=== PATIENT | male | born 1965 | race Hispanic/Latino ===

== ENCOUNTER 2016-11-12 17:13 | Emergency (ER) | payer SELFPAY ==
[2016-11-12 19:54] LABS: Hematocrit TNR % (35.5-45.6); Hemoglobin TNR gm/dl (11.8-15.2); Mean Corpuscular HGB Conc TNR % (32-34); Mean Corpuscular Hemoglobin TNR pg (28-32); Mean Corpuscular Volume TNR fl (84-94); Red Blood Count TNR M/mm3 (3.65-5.03); White Blood Count TNR K/mm3 (4.5-11.0)
[2016-11-12 19:55] LABS: Basophils % (Auto) TNR % (0.0-1.8); Diff Status TNR; Eosinophils % (Auto) TNR % (0.0-4.3); Mean Platelet Volume TNR fl (6-12); Platelet Count TNR K/mm3 (140-440); Red Cell Distribution Width TNR % (13.2-15.2)
[2016-11-12 20:09] LABS: Albumin/Globulin Ratio 1.1 %; Alkaline Phosphatase 141 units/L (35-129); BUN/Creatinine Ratio 15.71; Blood Urea Nitrogen 11 mg/dL (9-20); Calcium 9.1 mg/dL (8.4-10.2); Carbon Dioxide 25 mmol/L (22-30); Chloride 96.8 mmol/L (98-107); Glucose 297 mg/dL (75-100); Lipase 24 units/L (13-60); Sodium 135 mmol/L (137-145); Total Protein 7.8 g/dL (6.3-8.2)
[2016-11-12 20:39] LABS: Basophils % (Auto) 0.5 % (0.0-1.8); Eosinophils % (Auto) 1.7 % (0.0-4.3); Hematocrit 49.1 % (35.5-45.6); Hemoglobin 16.9 gm/dl (11.8-15.2); Mean Corpuscular HGB Conc 34 % (32-34); Mean Corpuscular Hemoglobin 29 pg (28-32); Mean Corpuscular Volume 83 fl (84-94); Platelet Count 250 K/mm3 (140-440); Red Blood Count 5.92 M/mm3 (3.65-5.03); Red Cell Distribution Width 13.7 % (13.2-15.2); White Blood Count 8.6 K/mm3 (4.5-11.0)
[2016-11-12 20:39] LABS: Alanine Aminotransferase 41 units/L (7-56); Anion Gap 18 mmol/L
[2016-11-12 22:02] VITALS: BP 125/88
--- NOTE | 2016-11-12 22:14 | Emergency Department Report ---
ED Abdominal Pain HPI - General Chief Complaint: Abdominal Pain Stated Complaint: URINARY INCONTINENCE Time Seen by Provider: 11/12/16 21:06 Source: patient Mode of arrival: Ambulatory Limitations: No Limitations - History of Present Illness MD Complaint: other (perineal redness) -: Gradual Location: diffuse Radiation: other (none) Migration to: no migration Severity: mild Severity scale (0 -10): 4 Quality: dull Consistency: intermittent Improves With: nothing Worsens With: nothing Context: other (polydipsia) Associated Symptoms: denies other symptoms - Related Data Previous Rx's Medication Instructions Recorded Last Taken Type Ciprofloxacin HCl [Ciprofloxacin 500 mg PO Q12HR #14 tab 11/12/16 Unknown Rx TAB] Nystatin Cream [Mycostatin Cream] 1 applic TP TID #1 tube 11/12/16 Unknown Rx metFORMIN [Glucophage] 500 mg PO BID #60 tablet 11/12/16 Unknown Rx Allergies Allergy/AdvReac Type Severity Reaction Status Date / Time No Known Allergies Allergy Unverified 11/12/16 19:10 ED Review of Systems ROS: Stated complaint: URINARY INCONTINENCE Other details as noted in HPI Comment: All other systems reviewed and negative Gastrointestinal: as per HPI Genitourinary: frequency Skin: rash ED Past Medical Hx - Past Medical History Previous Medical History?: No - Surgical History Past Surgical History?: Yes Hx Cholecystectomy: Yes - Social History Smoking Status: Current Every Day Smoker Substance Use Type: None - Medications Home Medications: Home Medications Medication Instructions Recorded Confirmed Last Taken Type Ciprofloxacin HCl [Ciprofloxacin 500 mg PO Q12HR #14 tab 11/12/16 Unknown Rx TAB] Nystatin Cream [Mycostatin Cream] 1 applic TP TID #1 tube 11/12/16 Unknown Rx metFORMIN [Glucophage] 500 mg PO BID #60 tablet 11/12/16 Unknown Rx ED Physical Exam - General Limitations: No Limitations General appearance: alert - Head Head exam: Present: atraumatic - Eye Eye exam: Present: normal appearance, PERRL, EOMI Pupils: Present: normal accommodation - ENT ENT exam: Present: normal exam - Neck Neck exam: Present: normal inspection - Respiratory Respiratory exam: Present: normal lung sounds bilaterally - Cardiovascular Cardiovascular Exam: Present: regular rate, normal rhythm - GI/Abdominal GI/Abdominal exam: Present: soft - Back Exam Back exam: Present: normal inspection - Neurological Exam Neurological exam: Present: alert, oriented X3 - Psychiatric Psychiatric exam: Present: normal affect - Skin Skin exam: Present: rash (erythema around the testicle AND PERINEAL AREA) ED Course Vital Signs 11/12/16 11/12/16 19:10 22:01 Temperature 98.3 F 98.4 F Pulse Rate 96 H 87 Respiratory 18 14 Rate Blood Pressure 150/97 Blood Pressure 150/97 125/88 [Right] O2 Sat by Pulse 100 100 Oximetry ED Medical Decision Making - Lab Data Result diagrams: 11/12/16 20:25 11/12/16 19:29 Critical care attestation.: If time is entered above; I have spent that time in minutes in the direct care of this critically ill patient, excluding procedure time. ED Disposition Clinical Impression: Diabetes mellitus, Incontinence, Yeast dermatitis Disposition: DC-01 TO HOME OR SELFCARE Is pt being admited?: No Does the pt Need Aspirin: No Condition: Stable Instructions: Diabetes Mellitus Type 2 in Adults (ED) Prescriptions: Ciprofloxacin HCl [Ciprofloxacin TAB] 500 mg PO Q12HR #14 tab metFORMIN [Glucophage] 500 mg PO BID #60 tablet Nystatin Cream [Mycostatin Cream] 1 applic TP TID #1 tube Referrals: PRIMARY CARE, [Primary Care Provider] - 3-5 Days
[2016-11-12 22:20] LABS: Bilirubin,Urine NEG (Negative); Blood,Urine SM (Negative); Ketones,Urine NEG (Negative); Leukocyte Esterase,Urine NEG (Negative); Mucus,Urine FEW /HPF; Nitrite,Urine NEG (Negative)
== END 2016-11-12 22:45 | disposition home or self-care (01) ==
LOC: ED 17:13
DX: L30.8 Other specified dermatitis (principal); E11.9 Type 2 diabetes mellitus without complications; F17.200 Nicotine dependence, unspecified, uncomplicated
CPT/HCPCS: 36415; 80053; 81001; 83690; 85025; 99283

== ENCOUNTER 2017-08-10 12:35 | Day surgery (SDC) | payer MEDICAID ==
[~2017-08-10 12:35] MED LIST: ANCEF/STERILE WATER 2 GM/20 ML 2 GM/20 ML SYRINGE IV NR; NACL 0.9% 1000 ML 1,000 ML IV SCH
[2017-08-10] MEDS ORDERED: SUBLIMAZE ONE (13:17)
[2017-08-10] MEDS ORDERED: XYLOCAINE MPF 2% ONE (13:17)
[2017-08-10] MEDS ORDERED: DIPRIVAN 10 MG/ML IV ONE (13:18)
[2017-08-10] MEDS ORDERED: HumuLIN R IV ONE (13:32)
--- NOTE | 2017-08-10 13:40 | Anesthesia Day of Surgery ---
Anesthesia Day of Surgery - Day of Surgery Patient Examined: Yes Patient H&P Reviewed: Yes Patient is NPO: Yes
[2017-08-10] MEDS ORDERED: ZOFRAN IV PRN (13:42)
--- NOTE | 2017-08-10 13:42 | Anesthesia Consultation ---
Anesthesia Consult and Med Hx Date of service: 08/10/17 - Airway Anesthetic Teeth Evaluation: Poor ROM Head & Neck: Adequate Mental/Hyoid Distance: Adequate Mallampati Class: Class III Intubation Access Assessment: Probably Good - Pulmonary Exam CTA: Yes - Cardiac Exam Cardiac Exam: RRR - Pre-Operative Health Status ASA Pre-Surgery Classification: ASA3 Proposed Anesthetic Plan: General (poor denition, missing several, loose teeth. GA with LMA ok. denies GERD) - Pulmonary Hx Smoking: Yes (1/2 PPD X 12 YRS) Hx Sleep Apnea: No (LIANET PRE SCREEN HIGH RISK) - Cardiovascular System Hx Hypertension: No - Other Systems Hx Cancer: No
[2017-08-10] MEDS ORDERED: VERSED IV NR (14:00)
[2017-08-10] MEDS ORDERED: GARAMYCIN ONE (14:19)
[2017-08-10] MEDS ORDERED: NACL 0.9% 100 ML ONE (14:21)
[2017-08-10] MEDS ORDERED: WATER FOR IRRIG STERILE IR ONE ×2 (14:44)
[2017-08-10] MEDS: DILAUDID IV PRN ×2 (14:55→15:16)
--- NOTE | 2017-08-10 14:57 | Post Operative Note ---
Date of procedure: 08/10/17 Pre-op diagnosis: stricture and inc psa Post-op diagnosis: other (poss infection) Findings: cysto dil rpgs Procedure: cysto rpgs dil Anesthesia: GETA Surgeon: CLARISA BELL Estimated blood loss: minimal Pathology: none Specimen disposition: to lab Condition: stable Disposition: PACU
[2017-08-10] MEDS ORDERED: ZOFRAN ONE (14:58)
--- NOTE | 2017-08-10 14:59 | Discharge Summary ---
Short Stay Discharge Plan Activity: other (no straining ) Weight Bearing Status: Full Weight Bearing Diet: low fat, low cholesterol, low salt Special Instructions: other (teach [place] care ) Durable Medical Equipment Needed Upon Discharge: other ([place] ) Follow up with: BENSON DESAI MD [Primary Care Provider] - 7 Days CLARISA BELL MD [Staff Physician] - 7 Days
--- NOTE | 2017-08-10 15:11 | Fluoroscopy Report ---
FLUOROSCOPY RETROGRADE UROGRAPHY: HISTORY: Urethral stricture. FINDINGS: Fluoroscopy was provided by radiology during retrograde urography by the urologist. 9 fluoroscopic images were captured. There is adequate filling of the ureters and intrarenal collecting systems with no filling defects or anatomic abnormalities identified. Please correlate with the procedural report if needed. IMPRESSION: Retrograde pyelograms within normal limits.
[2017-08-10] MEDS ORDERED: TORADOL ONE (15:30)
[2017-08-10] MEDS ORDERED: TORADOL IV ONE (15:33)
--- NOTE | 2017-08-10 15:38 | Post Anesthesia Evaluation ---
- Post Anesthesia Evaluation Patient Participated: Yes Airway Patent: Yes Stable Respiratory Function: Yes Nausea/Vomiting: No Temp > 96.8F: Yes Pain Manageable: Yes Adequeate Hydration: Yes Anesthesia Complications: No
[2017-08-10] MEDS ORDERED: TYLENOL PO PRN (16:00)
[2017-08-10 16:11] VITALS: BP 115/70
--- NOTE | 2017-08-10 23:58 | Consultation ---
PREOPERATIVE DIAGNOSIS: Distal urethral strictures, elevated PSA. POSTOPERATIVE DIAGNOSIS: Evidence of likely infection and severe stricture disease. PROCEDURE: Cystoscopy with urethral dilatation, insertion of [place] catheter, retrograde prostate biopsies were held because of possible infection. SURGEON: Ash Forte M.D. ANESTHESIA: General. FINDINGS: This gentleman has had seven surgeries on his distal urethra when he was a child. He has diminished flow, intermittent dysuria. He also has a family history of prostate cancer, elevated PSA, but he had infection. At this point, he now presents for treatment. DESCRIPTION OF PROCEDURE: The patient was brought to the operating room and placed on the operating table. Following induction of anesthesia, placed in lithotomy position, prepped and draped in usual sterile fashion. The meatus could not be negotiated initially because it was so narrow and the distal urethra was narrowed. We placed a wire in the bladder and using the coaxial dilators, dilated the urethra to 20-Persian. Cystoscopy was carried out and once we got the bladder, the urine was very concentrated and had an odor to it. Retrograde showed good filling, good drainage. Because of the fact we were unsure whether there was infection, he did get gentamicin and Ancef. We decided not to do prostate biopsies. The prostate felt firm and small. The patient tolerated the procedure well. A #20 [place] coiled in the bladder and was in good position. There was no significant complication. PLAN: Follow up prostate biopsies as needed with recheck of the PSA in about 6 weeks. JOB# [id number] KAYLEY/MIKEY
== END 2017-08-10 17:10 | disposition home or self-care (01) ==
LOC: OR 12:35
PROVIDERS: ATTEND Urology
DX: N99.110 Postprocedural urethral stricture, male, meatal (principal); R97.20 Elevated prostate specific antigen [PSA]; K21.9 Gastro-esophageal reflux disease without esophagitis; F17.210 Nicotine dependence, cigarettes, uncomplicated; Z79.899 Other long term (current) drug therapy
CPT/HCPCS: 52281; 74420; 82962; A4217; C1726; C1758; C1769; J0690; J1170; J1580; J1885; J2405; J2704; J3010; J7030; Q9967; J1815

== ENCOUNTER 2017-08-20 22:36 | Emergency (ER) | payer MEDICAID ==
[2017-08-20] MEDS ORDERED: MORPHINE ONE ×3 (22:41→22:42)
[2017-08-20] MEDS ORDERED: ZOFRAN ONE (22:41)
[2017-08-20] MEDS ORDERED: MORPHINE IV ONE ×2 (22:43→23:13)
[2017-08-20] MEDS ORDERED: ZOFRAN IV ONE (22:43)
--- NOTE | 2017-08-21 00:45 | Emergency Department Report ---
ED Male HPI - General Chief complaint: Pain General Stated complaint: PENILE PAIN Time Seen by Provider: 08/20/17 22:43 Source: EMS Mode of arrival: Stretcher Limitations: No Limitations - History of Present Illness Initial comments: Mr. Munguia is a very pleasant 52-year-old male with history of diabetes and distal urethral stricture. On August 10 he underwent urethral dilatation and cystoscopy by Dr. Forte urologist. On 2 days ago, he had catheter removed. He is currently using dilator rods to dilate the stricture in order to urinate. For the last 4 hours he was unable to urinate. He attempted to dilate the ureter. He began urinating blood clots. He has severe pain with urgency to urinate. He's been a severe pain for the past 4 hours. - Related Data Home Medications Medication Instructions Recorded Confirmed Last Taken Aspirin [Aspirin TAB] 325 mg PO PRN PRN 08/03/17 08/03/17 Unknown Insulin Aspart [NovoLOG Flexpen] 1 units SQ QID 08/03/17 08/03/17 Unknown Insulin Glargine,Hum.rec.anlog 10 unit SQ QHS 08/03/17 08/03/17 Unknown [Basaglar Kwikpen U-100] Previous Rx's Medication Instructions Recorded Last Taken Type HYDROcodone/APAP 10-325 [[place] 1 each PO Q6HR PRN #15 tablet 08/21/17 Unknown Rx 10/325] Allergies Allergy/AdvReac Type Severity Reaction Status Date / Time No Known Allergies Allergy Verified 08/03/17 16:53 ED Review of Systems ROS: Stated complaint: PENILE PAIN Other details as noted in HPI Comment: All other systems reviewed and negative Constitutional: denies: fever, malaise Cardiovascular: denies: chest pain ED Past Medical Hx - Past Medical History Hx Hypertension: No Hx Diabetes: Yes Hx GERD: Yes Hx Headaches / Migraines: Yes (MIGRAINES) Hx HIV: No - Surgical History Hx Cholecystectomy: Yes - Social History Smoking Status: Current Every Day Smoker Substance Use Type: None - Medications Home Medications: Home Medications Medication Instructions Recorded Confirmed Last Taken Type Aspirin [Aspirin TAB] 325 mg PO PRN PRN 08/03/17 08/03/17 Unknown History Insulin Aspart [NovoLOG Flexpen] 1 units SQ QID 08/03/17 08/03/17 Unknown History Insulin Glargine,Hum.rec.anlog 10 unit SQ QHS 08/03/17 08/03/17 Unknown History [Basaglar Kwikpen U-100] HYDROcodone/APAP 10-325 [[place] 1 each PO Q6HR PRN #15 tablet 08/21/17 Unknown Rx 10/325] ED Physical Exam - General Limitations: No Limitations General appearance: alert, in distress, other (yelling crying in severe pain rolling around in bed diaphoretic and flushed) - Head Head exam: Present: atraumatic - Eye Eye exam: Present: normal appearance, PERRL - ENT ENT exam: Present: normal exam - Neck Neck exam: Present: normal inspection. Absent: tenderness, meningismus - Respiratory Respiratory exam: Present: normal lung sounds bilaterally. Absent: respiratory distress, wheezes, rales, rhonchi - Cardiovascular Cardiovascular Exam: Present: regular rate, normal rhythm, normal heart sounds - GI/Abdominal GI/Abdominal exam: Present: soft, other (suprapubic region distended tender). Absent: distended, guarding - exam: Present: circumcision, other (small amount of blood at the urethral meatus). Absent: testicular tenderness, scrotal swelling, vertical testicular lie External exam: Present: normal external exam. Absent: erythema, swelling, lesions, lacerations, ecchymosis - Extremities Exam Extremities exam: Present: normal inspection - Neurological Exam Neurological exam: Present: alert, altered - Psychiatric Psychiatric exam: Present: normal affect, normal mood - Skin Skin exam: Present: warm, dry, intact ED Course Vital Signs 08/20/17 22:52 Temperature 98.9 F ED Medical Decision Making - Medical Decision Making Mr. Munguia was in extreme pain, extreme distress due to urinary retention. I performed bedside ultrasound and noted distended bladder. I attempted to place a 16 [place] catheter without success. I immediately contacted his urologist Dr. Forte who who recommended a smaller catheter 12 Turkmen. I was able to insert 12 [place] urethral catheter beyond the distal urethral stricture. I was unable to inflate the balloon. However after removal of the catheter, he was able to urinate bloody urine with relief of pain. Dr. Forte recommended sending patient home with 12 Turk[place] and 14 Turk[place] urinary catheters to use at home to dilate the stricture. After observation, Mr. Munguia was ready to be discharged. He was comfortable. He understood instructions to use a catheter 3 times a day to keep the urethral stricture opened. He requested pain medication. I did prescribe [place] 10 mg tablets. Critical care attestation.: If time is entered above; I have spent that time in minutes in the direct care of this critically ill patient, excluding procedure time. ED Disposition Clinical Impression: Urinary retention, Urethral stricture Disposition: TO HOME OR SELFCARE Is pt being admited?: No Does the pt Need Aspirin: No Condition: Stable Additional Instructions: Use a catheter 3 times a day in order to open up your urethral to release the urine. Prescriptions: HYDROcodone/APAP 10-325 [[place] 10/325] 1 each PO Q6HR PRN #15 tablet PRN Reason: Pain Referrals: CLARISA FORTE MD [Staff Physician] - 2-3 Days Time of Disposition: 00:59
[2017-08-21 01:31] VITALS: BP 165/89
== END 2017-08-21 01:31 | disposition home or self-care (01) ==
LOC: ED 22:36
DX: R33.9 Retention of urine, unspecified (principal); N35.9 Urethral stricture, unspecified; E11.9 Type 2 diabetes mellitus without complications; K21.9 Gastro-esophageal reflux disease without esophagitis; G43.909 Migraine, unspecified, not intractable, without status migrainosus; F17.200 Nicotine dependence, unspecified, uncomplicated; Z90.49 Acquired absence of other specified parts of digestive tract
CPT/HCPCS: 51702; 96374; 96375; 96376; 99283; J2270; J2405

== ENCOUNTER 2017-11-03 13:32 | Emergency (ER) | payer SELFPAY ==
[2017-11-03 13:51] VITALS: BP 162/88
--- NOTE | 2017-11-03 16:34 | Emergency Department Report ---
Blank Doc - Documentation Documentation: Patient is a 52-year-old male who is presenting with right lower extremity varicose vein bleeding. Patient's has some bleeding for the past 4 hours and has not been able to get to stop with pressure. Patient be sent to the treatment room to have a [id number] suture placed.
[2017-11-03] MEDS ORDERED: XYLOCAINE 1% MPF 5 mL INFILTRATI ONE (16:46)
--- NOTE | 2017-11-03 17:43 | Emergency Department Report ---
ED Laceration HPI - HPI Chief Complaint: Extremity Problem,Nontraumatic Stated Complaint: LEG SORE Time Seen by Provider: 11/03/17 16:20 Occurred When: Today Location: Lower Extremity (right leg) Severity: moderate (5/10) Tetanus Status: Up to Date Laceration Symptoms: Yes Pain (5/10 right distal leg), No Foreign Body Sensation , No Numbness, No Weakness Other History: Patient here with his family complaining that he bumped his right leg and it started bleeding in any place pressure dressing to side and it would not stop bleeding. Reports pain is 5 out of 10 to touch but no pain or walk-in. Denies any numbness or tingling. Injury is localized to right leg and no other complaints. Patient currently prostate cancer, diabetes, GERD and migraine headache. Pain exacerbated with touch, no pain when not touch. No medication taken. ED Review of Systems ROS: Stated complaint: LEG SORE Other details as noted in HPI Constitutional: denies: chills, fever Respiratory: denies: cough, shortness of breath, SOB with exertion, SOB at rest , stridor, wheezing Cardiovascular: denies: chest pain, palpitations, edema, syncope Gastrointestinal: denies: abdominal pain, nausea, vomiting, diarrhea Musculoskeletal: denies: back pain, arthralgia, myalgia Skin: other (laceration). denies: rash, lesions Neurological: denies: headache, weakness, numbness, paresthesias, abnormal gait ED Past Medical Hx - Past Medical History Previous Medical History?: Yes Hx Hypertension: No Hx Diabetes: Yes Hx GERD: Yes Hx of Cancer: Yes (Prostate) Hx Headaches / Migraines: Yes (MIGRAINES) Hx Seizures: Yes Hx HIV: No - Surgical History Past Surgical History?: Yes Hx Cholecystectomy: Yes - Family History Family history: hypertension - Social History Smoking Status: Current Some Day Smoker Substance Use Type: Alcohol - Medications Home Medications: Home Medications Medication Instructions Recorded Confirmed Last Taken Type Aspirin [Aspirin TAB] 325 mg PO PRN PRN 08/03/17 08/03/17 Unknown History Insulin Aspart [NovoLOG Flexpen] 1 units SQ QID 08/03/17 08/03/17 Unknown History Insulin Glargine,Hum.rec.anlog 10 unit SQ QHS 08/03/17 08/03/17 Unknown History [Basaglar Kwikpen U-100] HYDROcodone/APAP 10-325 [[place] 1 each PO Q6HR PRN #15 tablet 08/21/17 Unknown Rx 10325] Cephalexin [Keflex] 500 mg PO Q8HR 10 Days #21 cap 11/03/17 Unknown Rx Laceration Physical Exam - Exam General: Vital signs noted. No distress. Alert and acting appropriately. This is a 52-year-old male well-nourished well-developed in no acute distress. Wound Length (cm): 0 (0.5 cm) Laceration Location: Lower Extremity (distal right leg) Full Body Front + Back: 1 - Approximately 0.5 cm superficial laceration with flap to right distal leg. Positive bleeding. Tetanus vaccines up-to-date. No overt foreign body noted. Tender to palpate with no signs of infection Laceration Exam: Yes Normal Distal CMS (past pulses, no clubbing, cyanosis or edema.), No Foreign Body, No Exposed Tendon, Vessel, or Nerve, No Tendon Injury ED Course Vital Signs 11/03/17 13:40 Temperature 97.7 F Pulse Rate 96 H Respiratory 19 Rate Blood Pressure 162/88 O2 Sat by Pulse 97 Oximetry - Reevaluation(s) Reevaluation #1: 11/03/17 17:43 Patient stable throughout ED course. See procedure note for detail and laceration repair - Laceration /Wound Repair Right Anterior Distal Leg Wound Location: lower extremity (right distal anterior leg) Wound Length (cm): 0 (0.5 cm) Wound's Depth, Shape: superficial, flap Wound Explored: no foreign body removed Irrigated w/ Saline (ccs): 75 Betadine Prep?: Yes Anesthesia: 1% Lidocaine Volume Anesthetic (ccs): 2 Wound Debrided: moderate Wound Repaired With: sutures Suture Size/Type: 4:0 (Eth[place]) Number of Sutures: 3 Layer Closure?: No Sterile Dressing Applied?: Yes ED Medical Decision Making - Medical Decision Making This is a 52-year-old male here after injuring his right distal leg by bumping it on an object. Patient states that the bleeding would not stop so he decided to come to the emergency room but prior to coming the place pressure dressing to side. He has no bleeding disorder per patient. Patient examined by myself and found to have varicosities to the legs. He has small laceration approximately 0.5 cm , flap-like superficial laceration to his distal leg that is bleeding. Wound repair. Please see procedure note for details. Bleeding stopped after wound repair. Patient states that his tetanus shot is less than 5 years. He tolerated procedure well. Sterile bulky dressing placed to site. Patient is stable discharged home in stable condition in no acute distress. Vital signs are stable he is afebrile. Patient was given Keflex antibiotic to prevent infection. He is to follow-up with his primary care physician which she does have one in 4 days. Critical care attestation.: If time is entered above; I have spent that time in minutes in the direct care of this critically ill patient, excluding procedure time. ED Disposition Clinical Impression: Laceration of leg, right Qualifiers: Encounter type: initial encounter Qualified Code(s): S81.811A - Laceration without foreign body, right lower leg, initial encounter Disposition: DC-01 TO HOME OR SELFCARE Is pt being admited?: No Does the pt Need Aspirin: No Condition: Stable Instructions: Laceration (ED), Suture Care (ED) Additional Instructions: Please return in 7-10 days to have stitches of number from right leg Keep affected area clean and dry Return to the emergency room or urgent care/primary care physician for removal of stitches. Taken antibiotic to prevent infection Remove Bulky dressing tomorrow Referrals: PRIMARY CARE [Primary Care Provider] - 11/07/17 return to, ED/urgent care or primary care physician office [Other] - 7-10 days Forms: Accompanied Note
== END 2017-11-03 17:59 | disposition home or self-care (01) ==
LOC: ED 13:32
DX: S81.811A Laceration without foreign body, right lower leg, initial encounter (principal); E11.9 Type 2 diabetes mellitus without complications; K21.9 Gastro-esophageal reflux disease without esophagitis; G43.909 Migraine, unspecified, not intractable, without status migrainosus; F17.200 Nicotine dependence, unspecified, uncomplicated; Z90.49 Acquired absence of other specified parts of digestive tract; Z85.46 Personal history of malignant neoplasm of prostate; Z79.4 Long term (current) use of insulin; W22.8XXA Striking against or struck by other objects, initial encounter; Y93.89 Activity, other specified; Y92.89 Other specified places as the place of occurrence of the external cause; Y99.8 Other external cause status
CPT/HCPCS: 99281

== ENCOUNTER 2017-12-06 08:43 | Outpatient (CLI) | payer MEDICAID ==
--- NOTE | 2017-12-06 16:28 | Cat Scan Report ---
FINAL REPORT EXAM: CT ABDOMEN PELVIS WO CON HISTORY: MALIGNANT NEOPLASM OF PROSTATE TECHNIQUE: CT examination of the ABDOMEN without IV contrast CT examination of the PELVIS without IV contrast PRIORS: None. FINDINGS: Nonspecific ovoid pulmonary nodule measures 4 x 7 mm in the right middle lobe anteriorly, series 2, image 20. Slight linear scar versus atelectasis in the lingula. Healed posterior left rib fractures. Smoothly marginated nonspecific small sclerotic foci in the proximal femur bilaterally, pubic rami bilaterally and lower right iliac crest may be bone islands. Given history of prostate cancer, differential includes metastatic foci. Normal noncontrast appearance of the liver, adrenals, pancreas, and spleen. Normal caliber abdominal aorta and IVC. A nonspecific, smoothly marginated, low density, simple appearing left renal lesion is statistically most likely a cyst. Otherwise normal-appearing kidneys and ureters. Surgically absent gallbladder. Very small fat containing umbilical hernia. Very small fat containing inguinal hernias. No retroperitoneal adenopathy. No evidence of mesenteric mass. Normal-appearing stomach and duodenum. No small bowel distention in the abdomen and pelvis. No pelvic free fluid. Normal-appearing urinary bladder except for slight mass effect on the urinary bladder base by slightly enlarged prostate gland. Normal-appearing seminal vesicles. No definite rectal or sigmoid colon abnormality. No gross ascites, free air, or colonic distention. Normal-appearing cecum, terminal ileum, and retrocecal appendix. IMPRESSION: 4 x 7 mm right middle lobe pulmonary nodule. Recommend followup chest CT to complete the lung examination Slight prominence of the prostate gland with mass effect on the urinary bladder base Small scattered sclerotic foci in the pelvis and proximal femurs typically reflect benign bone islands. Differential includes small metastatic foci in history of prostate cancer Prior cholecystectomy Very small fat containing hernias
--- NOTE | 2017-12-07 07:45 | Nuclear Medicine Report ---
NUCLEAR MEDICINE WHOLE BODY BONE SCAN HISTORY: Malignant neoplasm of prostate gland TECHNIQUE: Anterior and posterior whole body images were obtained 3 hours after injection of 25 mCi of technetium 99m MDP. Oblique images of the chest and AP view of the abdomen was also obtained. COMPARISON: No previous bone scan. Correlation is made with noncontrast CT abdomen and pelvis performed the same day. FINDINGS: There is normal renal and soft tissue activity. There is moderate degenerative uptake in the shoulders, sternoclavicular joints, spine, knees and left foot. There is subtle linear rib uptake in the left paraspinal region spanning from the level of T5-T10 consistent with remodeling fractures on CT. There is focal uptake along the right side of T4 which is suspicious for a solitary metastatic lesion. This area was not scanned on the CT abdomen pelvis performed the same day. Consider radiographic correlation. IMPRESSION: Slightly suspicious focal uptake at the level of T4 as described above. Radiographic correlation is recommended. Moderate multi-joint degenerative uptake. Linear uptake in the left posterior ribs from levels 5-10 consistent with healing fractures/trauma.
== END 2017-12-06 08:44 | disposition home or self-care (01) ==
LOC: NM 08:43
PROVIDERS: ATTEND Urology
DX: C61 Malignant neoplasm of prostate (principal); R91.1 Solitary pulmonary nodule; K46.9 Unspecified abdominal hernia without obstruction or gangrene; K21.9 Gastro-esophageal reflux disease without esophagitis; Z90.49 Acquired absence of other specified parts of digestive tract; Z87.891 Personal history of nicotine dependence
CPT/HCPCS: 74176; 78306